=== PATIENT | female | born 1960 | race African-American/Black ===

== ENCOUNTER 2016-12-01 07:58 | Emergency (ER) | payer SELFPAY ==
--- NOTE | 2016-12-01 08:48 | ER Document Report ---
HPI - HPI Patient complains to provider of: rash Onset: Yesterday Onset/Duration: Sudden Quality of pain: Other - itching Pain Level: 2 Associated Symptoms: None Exacerbated by: Denies Relieved by: Denies Similar symptoms previously: No Recently seen / treated by doctor: No Notes: Patient presents with blisters on the top of her foot and isolated blisters on her left and right thigh. she denies any contact with [employer] food [employer]. She states she was sitting on her patio the past couple of days in shorts and flip flops and is unsure if she had any contact with plants. denies any fever, swelling. denies burning/painful sensation prior to blisters - REPRODUCTIVE Reproductive: DENIES: : - DERM Skin Color: Normal Past Medical History - Social History Smoking Status: Current Every Day Smoker Chew tobacco use (# tins/day): No Frequency of alcohol use: Occasional Drug Abuse: None Family History: Reviewed & Not Pertinent Patient has suicidal ideation: No Patient has homicidal ideation: No Renal/ Medical History: Denies: Hx Peritoneal Dialysis Past Surgical History: Reports: Hx Gynecologic Surgery - Immunizations Hx Diphtheria, Pertussis, Tetanus Vaccination: No Vertical Provider Document - CONSTITUTIONAL Agree With Documented VS: Yes Exam Limitations: No Limitations General Appearance: WD/WN, No Apparent Distress - INFECTION CONTROL TRAVEL OUTSIDE OF THE [place] IN LAST 30 DAYS: No - RESPIRATORY O2 Sat by Pulse Oximetry: 97 - CARDIOVASCULAR Pulses: Normal: Dorsalis pedis - MUSCULOSKELETAL/EXTREMETIES Musculoskeletal/Extremeties: MAEW, FROM, Non-Tender, No Edema - NEURO Level of Consciousness: Awake, Alert, Appropriate Motor/Sensory: No Motor Deficit, No Sensory Deficit - DERM Integumentary: Warm, Dry Adult Front & Back Diagram: 1 - cluster of 4 bulla with clear fluid, no evidence of vesicles on an erthematous base 2 - one bulla, no eveidenc eof tension, purulent contents, nontender 3 - bulla, fluctuant, nontender, no evidence of purulent contents Course - Re-evaluation Re-evalutation: 12/01/16 08:47 Patient is a 56-year-old female who is hemodynamic stable, no acute distress afebrile. Presentation today consistent with a contact dermatitis. Patient will be discharged home with instructions to take Benadryl and calamine lotion and Motrin as needed for pain. Symptoms do not improve can follow-up with primary care. - Vital Signs Vital signs: Temp Pulse Resp BP Pulse Ox 98.0 F 75 16 153/84 H 97 12/01/16 08:03 12/01/16 08:03 12/01/16 08:03 12/01/16 08:03 12/01/16 08:03 Discharge - Discharge Clinical Impression: Contact dermatitis Qualifiers: Contact dermatitis type: irritant Contact dermatitis trigger: unspecified trigger Qualified Code(s): L24.9 - Irritant contact dermatitis, unspecified cause Condition: Good Disposition: HOME, SELF-CARE Instructions: Contact Dermatitis ([facility]) Additional Instructions: You can take Benadryl or a non-drowsy antihistamine (Claritin, Zyrtec) to help with the itching. You can dress the blisters with calamine lotion You can also take Motrin to help reduce the inflammation Forms: Elevated Blood Pressure, Return to Work Referrals: [facility] [NO [facility]AL MD] - Follow up as needed
[2016-12-01 09:47] VITALS: BP 133/85
== END 2016-12-01 09:47 | disposition home or self-care (01) ==
LOC: ER 07:58
DX: L24.9 Irritant contact dermatitis, unspecified cause (principal); F17.200 Nicotine dependence, unspecified, uncomplicated
CPT/HCPCS: 87070; 87205; 99283